=== PATIENT | female | born 1955 | race Caucasian/White ===

== ENCOUNTER 2019-05-02 13:54 | Outpatient (CLI) | payer OTHER ==
[2019-05-02 14:29] LABS: Anion Gap 13 mmol/L (10-20); BUN (Urea Nitrogen) 12 mg/dL (9.8-20.1); Calc. Creatinine Clearance 0 mL/min (70-130); Calcium 9.7 mg/dL (7.8-10.44); Carbon Dioxide 27 mmol/L (23-31); Chloride 104 mmol/L (98-107); Estimated GFR-MDRD 79; Glucose 161 mg/dL (80-115); Sodium 140 mmol/L (136-145)
== END 2019-05-02 13:55 | disposition home or self-care (01) ==
LOC: MADLABBHPM 13:54
PROVIDERS: ATTEND Family Medicine
DX: R60.0 Localized edema (principal)
CPT/HCPCS: 36415

== ENCOUNTER 2019-07-27 13:31 | Emergency (ER) | payer OTHER ==
--- NOTE | 2019-07-27 14:37 | CT ---
CT OF THE LUMBAR SPINE WITHOUT IV CONTRAST: 07/27/19 INDICATION: History of fall with back pain. COMPARISON: CT lumbar myelogram dated 05/27/19. FINDINGS: The mild retrolisthesis of L2 on L3 is stable. Vacuum disc phenomenon at L5-S1 and L2-L3 are similar appearing. There is mild vacuum disc phenomenon at L1-L2. No acute fracture is evident. There is a prominent 6.7 cm right renal cyst. There is a 1.8 cm left renal cyst. There is suspected 1 .7 cm left peripelvic cyst involving the superior pole of the left kidney. There are scattered vascular calcifications. Patient's previously seen spinal stenosis related to a b road based bulge and facet hypertrophy at L2-3 is not as well detailed as on the comparison CT myelog lainey. There is moderate to severe bilateral osseous neural foraminal narrowing, left greater than right at L5-S1 which is stable. At L4-5, there is a broad based bulge with suggestion of at least mild central canal stenosis. There is mild to moderate left and mild right neural foraminal narrowing. At L3-4, there is a broad based bulge with facet hypertrophy likely inducing at least moderate bilate ral neural foraminal narrowing which appears similar appearing. At L2-3, patient's previously seen broad based bulge, not definitely demonstrated on current examinat ion. At L1-2, there is no appreciable osseous central canal or neural foraminal narrowing. IMPRESSION: 1. No acute fracture or subluxation is evident. 2. Spondylosis of the lumbar spine as above. POS: TPC
== END 2019-07-27 14:30 | disposition home or self-care (01) ==
LOC: MADERS 13:31
DX: S39.82XA Other specified injuries of lower back, initial encounter (principal); S50.02XA Contusion of left elbow, initial encounter; S00.03XA Contusion of scalp, initial encounter; S20.221A Contusion of right back wall of thorax, initial encounter; J44.9 Chronic obstructive pulmonary disease, unspecified; E11.9 Type 2 diabetes mellitus without complications; I10 Essential (primary) hypertension; M19.90 Unspecified osteoarthritis, unspecified site; F41.9 Anxiety disorder, unspecified; Z79.899 Other long term (current) drug therapy; Z71.6 Tobacco abuse counseling; W18.30XA Fall on same level, unspecified, initial encounter
CPT/HCPCS: 72131; 99406

== ENCOUNTER 2020-01-19 15:49 | Outpatient (CLI) | payer MEDICARE, OTHER ==
--- NOTE | 2020-01-19 16:13 | RAD ---
THREE VIEWS LEFT FOOT: 01/19/20 COMPARISON: 02/16/19. HISTORY: Lateral foot pain. Trauma. FINDINGS: Nondisplaced fracture with possible intra-articular extension involving the proximal aspect of the pr oximal phalanx of the fifth digit. There is associated soft tissue swelling. Lisfranc alignment is maintained. Preserved joint spaces. IMPRESSION: Fracture involving the proximal phalanx of the fifth digit. POS: CET
== END 2020-01-19 15:50 | disposition home or self-care (01) ==
LOC: MADRAD 15:49
PROVIDERS: ATTEND Family Medicine
DX: M79.675 Pain in left toe(s) (principal); S92.512A Displaced fracture of proximal phalanx of left lesser toe(s), initial encounter for closed fracture

== ENCOUNTER 2020-07-10 09:26 | Outpatient (CLI) | payer MEDICARE, MEDICAID ==
[2020-07-10 09:53] LABS: Hemoglobin 12.6 g/dL (12.0-16.0); Mean Corpuscular HGB CONC 31.5 g/dL (32.0-36.0); Mean Corpuscular Hemoglobin 29.3 pg (27.0-31.0); Mean Platelet Volume 6.7 fL (7.4-10.4); Platelet Count 237 thou/uL (130-400); RBC Distribution Width 20.2 % (11.5-14.5); White Blood Cell (WBC) Count 6.6 thou/uL (4.8-10.8)
[2020-07-10 17:18] LABS: Hemoglobin A1c 5.1 % (4.0-6.0)
== END 2020-07-10 09:27 | disposition home or self-care (01) ==
LOC: MADLAB 09:26
PROVIDERS: ATTEND Internal Medicine Hematology & Oncology
DX: D53.8 Other specified nutritional anemias (principal); E11.9 Type 2 diabetes mellitus without complications
CPT/HCPCS: 36415; 82728; 83036; 85027

== ENCOUNTER 2020-11-22 19:11 | Outpatient (CLI) | payer MEDICARE, OTHER | END 2020-11-22 19:12 | disposition home or self-care (01) | LOC: MADLAB 19:11 | PROVIDERS: ATTEND Family Medicine | DX: R39.9 Unspecified symptoms and signs involving the genitourinary system (principal) | CPT/HCPCS: 87086 ==

== ENCOUNTER 2020-11-26 15:59 | Emergency (ER) | payer MEDICARE, OTHER ==
--- NOTE | 2020-11-26 18:15 | RAD ---
LEFT WRIST RADIOGRAPHS FOUR VIEWS: Date: 11-26-2020 PROVIDED CLINICAL HISTORY: Pain status post injury. FINDINGS: There is no evidence for fracture or other acute osseous abnormality. If there is persistent clinical concern, conservative management and follow up imaging are advised. IMPRESSION: As above. POS: YEE
[2020-11-26] MEDS ORDERED: HYDROcodone/Acetaminophen 5/325 mg Tablet ONE (18:16)
--- NOTE | 2020-11-26 18:16 | RAD ---
PELVIC RADIOGRAPH: Date: 11-26-2020 PROVIDED CLINICAL HISTORY: Pelvic pain status post injury. FINDINGS: There is no evidence for fracture or other acute osseous abnormality. If there is persistent clinical concern, conservative management and follow up imaging are advised. Degenerative changes are seen in volving both hips. IMPRESSION: As above. POS: YEE
--- NOTE | 2020-11-26 18:18 | RAD ---
LEFT HAND RADIOGRAPHS THREE VIEWS: Date: 11-26-2020 PROVIDED CLINICAL HISTORY: Pain status post injury. FINDINGS: There is no evidence for fracture. There is extension of the fifth PIP joint and flexion at the fifth PIP joint compatible with a swan-neck deformity. Alignment appears otherwise anatomic. Joint spaces appear preserved. IMPRESSION: No evidence for fracture. If there is persistent clinical concern, conservative management and follow up imaging are advised. POS: YEE
--- NOTE | 2020-11-26 18:27 | RAD ---
LUMBAR SPINE RADIOGRAPHS THREE VIEWS: Date: 11-26-2020 PROVIDED CLINICAL HISTORY: Back pain status post injury. FINDINGS: Comparison 10-27-19. Degenerative and post-operative changes are redemonstrated, stable. Lumbar vertebral body heights anamika ear preserved. No evidence for fracture. Lumbar alignment appears unchanged. There is lucency about t he L2 and L3 pedicle screws that may reflect loosening. IMPRESSION: No evidence for fracture. If there is persistent clinical concern, conservative management and follow up imaging are advised. POS: YEE
== END 2020-11-26 18:33 | disposition home or self-care (01) ==
LOC: MADERS 15:59
DX: S60.212A Contusion of left wrist, initial encounter (principal); M54.5 Low back pain; E11.9 Type 2 diabetes mellitus without complications; I10 Essential (primary) hypertension; J44.9 Chronic obstructive pulmonary disease, unspecified; M19.90 Unspecified osteoarthritis, unspecified site; F17.210 Nicotine dependence, cigarettes, uncomplicated; D64.9 Anemia, unspecified; Z79.4 Long term (current) use of insulin; Z79.899 Other long term (current) drug therapy; W18.2XXA Fall in (into) shower or empty bathtub, initial encounter
CPT/HCPCS: 72100; 72170

== ENCOUNTER 2020-12-13 12:01 | Emergency (ER) | payer MEDICARE, OTHER ==
[2020-12-13 13:56] LABS: Bilirubin Negative (Negative); Blood, Urine Trace (Negative); Clarity Clear (Clear); Glucose, Urine (Dipstick) Negative (Negative); Ketone, Urine Negative (Negative); Leukocyte Trace (Negative); Nitrite Negative (Negative); Protein, Urine (Dipstick) Negative (Neg-Trace); Urobilinogen 0.2 mg/dL (Less than 2); pH, Urine 7.5 (5.0-9.0)
[2020-12-13 13:58] LABS: RBC/HPF 0-3 HPF (0-3); Squamous Epithelial 0-3 HPF (0-3); WBC/HPF 0-3 HPF (0-3)
[2020-12-13 14:00] LABS: Bacteria/HPF 1+ HPF (None Seen)
--- NOTE | 2020-12-13 14:08 | RAD ---
LEFT HIP 2 VIEWS: HISTORY: Hip pain. COMPARISON: 02/16/2019. FINDINGS: Degenerative changes at the left hip again noted with joint narrowing and mild spurring from the femo ral head and acetabulum. No fracture or acute abnormality. IMPRESSION: Moderate degenerative changes left hip, stable from prior exam. POS: AGW
--- NOTE | 2020-12-13 14:09 | RAD ---
LUMBAR SPINE: 12/13/20 Three views. INDICATIONS: Back pain. COMPARISON: 11/26/20. Pedicle screws on the right at the L2-L3 level unchanged. Vertebral bodies continue to maintain heigh t. Posterolisthesis at L2-3 is stable. Degenerative changes are again noted. IMPRESSION: Stable findings when compared to 11/26/20. POS: AGW
== END 2020-12-13 14:20 | disposition home or self-care (01) ==
LOC: MADERS 12:01
DX: S70.02XA Contusion of left hip, initial encounter (principal); M17.12 Unilateral primary osteoarthritis, left knee; M16.12 Unilateral primary osteoarthritis, left hip; N39.0 Urinary tract infection, site not specified; K21.9 Gastro-esophageal reflux disease without esophagitis; E11.9 Type 2 diabetes mellitus without complications; Z79.4 Long term (current) use of insulin; I10 Essential (primary) hypertension; J44.9 Chronic obstructive pulmonary disease, unspecified; M19.90 Unspecified osteoarthritis, unspecified site; D64.9 Anemia, unspecified; F17.210 Nicotine dependence, cigarettes, uncomplicated; Z79.899 Other long term (current) drug therapy; W07.XXXA Fall from chair, initial encounter
CPT/HCPCS: 36416; 72100; 81003; 81015; 87077; 87086

== ENCOUNTER 2021-01-17 11:37 | Emergency (ER) | payer MEDICARE, OTHER ==
[2021-01-17] MEDS ORDERED: Dexamethasone 10 MG/ML VIAL ONE (12:09)
--- NOTE | 2021-01-17 12:43 | CT ---
EXAM: CT Pelvis WO Con PROVIDED CLINICAL HISTORY: Bilateral hip pain after fall 3 weeks ago. COMPARISON: 03/14/2019 FINDINGS: Degenerative changes are seen in the spine greatest at the lumbosacral junction. [employer] Nurse image demonstr ates postoperative changes related to posterior fusion with unilateral right-sided pedicular screws and posterior rods transfixing the L2-3 level. Mild bilateral hip osteoarthritis is present. No fracture or dislocation is seen. No obvious joint ef fusion is seen. Vascular calcifications are seen in the visualized abdominal aorta and involving the iliac arteries. Multiple phleboliths overlie the pelvis. There is evidence of hysterectomy. Urinary bladder has a normal CT appearance. IMPRESSION: 1. No fracture or dislocation is seen involving the pelvis. 2. Degenerative changes in the spine with evidence of bilateral hip osteoarthritis.
== END 2021-01-17 14:20 | disposition home or self-care (01) ==
LOC: MADERS 11:37
DX: M16.12 Unilateral primary osteoarthritis, left hip (principal); K21.9 Gastro-esophageal reflux disease without esophagitis; E11.9 Type 2 diabetes mellitus without complications; I10 Essential (primary) hypertension; J44.9 Chronic obstructive pulmonary disease, unspecified; D64.9 Anemia, unspecified
CPT/HCPCS: 72192; 96372; J1100

== ENCOUNTER 2021-04-26 09:33 | Outpatient (CLI) | payer MEDICARE, OTHER | END 2021-04-26 09:34 | disposition home or self-care (01) | LOC: MADRAD 09:33 | PROVIDERS: ATTEND Family Medicine | DX: M25.561 Pain in right knee (principal); M25.562 Pain in left knee; M25.551 Pain in right hip; M25.552 Pain in left hip; M54.5 Low back pain; M47.816 Spondylosis without myelopathy or radiculopathy, lumbar region; M48.061 Spinal stenosis, lumbar region without neurogenic claudication; M43.16 Spondylolisthesis, lumbar region; M43.17 Spondylolisthesis, lumbosacral region; N28.9 Disorder of kidney and ureter, unspecified; M17.12 Unilateral primary osteoarthritis, left knee; M16.0 Bilateral primary osteoarthritis of hip; Z98.1 Arthrodesis status | CPT/HCPCS: 72131 ==

== ENCOUNTER 2021-05-22 10:32 | Emergency (ER) | payer MEDICARE, MEDICAID ==
[2021-05-22 12:11] LABS: Hemoglobin 11.2 g/dL (12.0-16.0); Mean Corpuscular HGB CONC 31.9 g/dL (32.0-36.0); Mean Corpuscular Hemoglobin 30.8 pg (27.0-31.0); Mean Corpuscular Volume 96.5 fL (78.0-98.0); Mean Platelet Volume 8.5 fL (7.4-10.4); Platelet Count 206 thou/uL (130-400); RBC Distribution Width 17.5 % (11.5-14.5); Red Blood Cell (RBC) Count 3.64 mill/uL (4.20-5.40); White Blood Cell (WBC) Count 6.1 thou/uL (4.8-10.8)
[2021-05-22 12:24] LABS: ALT (SGPT) 10 U/L (8-55); AST (SGOT) 16 U/L (5-34); Albumin 3.4 g/dL (3.4-4.8); Alkaline Phosphatase 43 U/L (40-110); Anion Gap 14 mmol/L (10-20); BUN (Urea Nitrogen) 15 mg/dL (9.8-20.1); Bilirubin, Total 0.2 mg/dL (0.2-1.2); Calc. Creatinine Clearance 0 mL/min (70-130); Carbon Dioxide 29 mmol/L (23-31); Chloride 100 mmol/L (98-107); Glucose 147 mg/dL (80-115); Lipase 12 U/L (8-78); Potassium 4.8 mmol/L (3.5-5.1); Protein, Total 6.4 g/dL (5.8-8.1); Sodium 138 mmol/L (136-145)
[2021-05-22 12:31] LABS: Anisocytosis SLIGHT = 6-15 cells (100X) (0-5/hpf); Platelet Morphology Comment Appears Adequate
[2021-05-22 12:41] LABS: CKMB 0.7 ng/mL (0-6.6)
[2021-05-22] MEDS ORDERED: Aspirin Chewable 81 MG TAB ONE (12:51)
[2021-05-22] MEDS ORDERED: Nitroglycerin 2% Ointment 1 INCH/1 GM Packet ONE (12:51)
== END 2021-05-22 18:04 | disposition short-term general hospital (02) ==
LOC: MADERS 10:32
DX: S20.229A Contusion of unspecified back wall of thorax, initial encounter (principal); I21.4 Non-ST elevation (NSTEMI) myocardial infarction; R91.1 Solitary pulmonary nodule; D64.9 Anemia, unspecified; J44.9 Chronic obstructive pulmonary disease, unspecified; R60.0 Localized edema; K21.9 Gastro-esophageal reflux disease without esophagitis; E11.9 Type 2 diabetes mellitus without complications; Z79.4 Long term (current) use of insulin; I10 Essential (primary) hypertension; Z99.81 Dependence on supplemental oxygen; M19.90 Unspecified osteoarthritis, unspecified site; W05.0XXA Fall from non-moving wheelchair, initial encounter
CPT/HCPCS: 71045; 72128; 80053; 82553; 83690; 83880; 84484; 85025; 93005

== ENCOUNTER 2022-03-20 10:37 | Outpatient (CLI) | payer MEDICARE | END 2022-03-20 10:38 | disposition home or self-care (01) | LOC: MADRAD 10:37 | PROVIDERS: ATTEND Internal Medicine | DX: J44.9 Chronic obstructive pulmonary disease, unspecified (principal); R91.8 Other nonspecific abnormal finding of lung field; J98.4 Other disorders of lung | CPT/HCPCS: 71250 ==

== ENCOUNTER 2022-07-09 15:41 | Outpatient (CLI) | payer MEDICARE, MEDICAID ==
[2022-07-09 16:22] LABS: ALT (SGPT) 12 U/L (8-55); AST (SGOT) 15 U/L (5-34); Albumin 3.3 g/dL (3.4-4.8); Alkaline Phosphatase 46 U/L (40-110); Anion Gap 12 mmol/L (10-20); BUN (Urea Nitrogen) 16 mg/dL (9.8-20.1); Bilirubin, Total 0.2 mg/dL (0.2-1.2); Calc. Creatinine Clearance 0 mL/min (70-130); Calcium 9.1 mg/dL (7.8-10.44); Carbon Dioxide 28 mmol/L (23-31); Chloride 103 mmol/L (98-107); Estimated GFR 75; Globulin 3.2 g/dL (2.4-3.5); Glucose 153 mg/dL (80-115); Potassium 4.1 mmol/L (3.5-5.1); Protein, Total 6.5 g/dL (5.8-8.1); Sodium 139 mmol/L (136-145)
== END 2022-07-09 15:42 | disposition home or self-care (01) ==
LOC: MADLAB 15:41
PROVIDERS: ATTEND Student in an Organized Health Care Education/Training Program
DX: E11.65 Type 2 diabetes mellitus with hyperglycemia (principal)
CPT/HCPCS: 36415; 80053; 83036

== ENCOUNTER 2022-09-02 12:51 | Emergency (ER) | payer OTHER ==
[2022-09-02 13:40] LABS: Bilirubin Negative (Negative); Blood, Urine Negative (Negative); Glucose, Urine (Dipstick) 500 mg/dL (Negative); Ketone, Urine Negative (Negative); Leukocyte Trace (Negative); Nitrite Negative (Negative); Protein, Urine (Dipstick) Negative (Neg-Trace); Specific Gravity, Urine 1.015 (1.005-1.030); Urobilinogen 0.2 mg/dL (Less than 2); pH, Urine 6.5 (5.0-9.0)
[2022-09-02 13:41] LABS: Bacteria/HPF 2+ HPF (None Seen); Clarity Cloudy (Clear); RBC/HPF 0-3 HPF (0-3); Yeast-Budding Rare HPF (None Seen)
[2022-09-02] MEDS ORDERED: Fluconazole 100 MG TAB ONE (14:07)
[2022-09-02] MEDS ORDERED: Cephalexin 500 MG CAP ONE (14:17)
== END 2022-09-02 14:34 | disposition home or self-care (01) ==
LOC: MADERS 12:51
DX: S31.41XA Laceration without foreign body of vagina and vulva, initial encounter (principal); N39.0 Urinary tract infection, site not specified; B37.31 Acute candidiasis of vulva and vagina; K21.9 Gastro-esophageal reflux disease without esophagitis; I10 Essential (primary) hypertension; E11.9 Type 2 diabetes mellitus without complications; J42 Unspecified chronic bronchitis; M19.90 Unspecified osteoarthritis, unspecified site; D50.0 Iron deficiency anemia secondary to blood loss (chronic); X58.XXXA Exposure to other specified factors, initial encounter; Z79.4 Long term (current) use of insulin; Z87.891 Personal history of nicotine dependence; Z79.899 Other long term (current) drug therapy
CPT/HCPCS: 81003; 81015; 87086; 99284